=== PATIENT | male | born 1965 | race Caucasian/White ===

== ENCOUNTER → 2021-08-06 | Outpatient (CLI) | payer BC | LOC: KOH-I 12:34 | DX: M48.07 Spinal stenosis, lumbosacral region (principal); M43.06 Spondylolysis, lumbar region; M43.07 Spondylolysis, lumbosacral region; M51.86 Other intervertebral disc disorders, lumbar region; M47.814 Spondylosis without myelopathy or radiculopathy, thoracic region | CPT/HCPCS: 72146; 72148 ==